=== PATIENT | female | born 1950 | race Caucasian/White ===

== ENCOUNTER 2017-05-05 08:00 | Outpatient (CLI) | payer OTHER ==
[2017-05-05 14:22] LABS: BASOPHILS % (AUTO) 0.6 %; EOSINOPHILS # (AUTO) 0.2 10^3/uL (0.0-0.7); EOSINOPHILS % (AUTO) 2.8 %; HCT - HEMATOCRIT 45.3 % (37.0-47.0); LYMPHOCYTES # (AUTO) 1.7 10^3/uL (1.5-3.5); LYMPHOCYTES % (AUTO) 29.3 %; MEAN CORPUSCULAR HEMOGLOBIN 29.3 pg (27.0-31.0); MEAN CORPUSCULAR VOLUME 88.9 fL (81.0-99.0); MEAN PLATELET VOLUME 8.1 fL (7.9-10.8); MONOCYTES # (AUTO) 0.9 10^3/uL (0.0-1.0); NEUTROPHILS % (AUTO) 51.3 %; NUCLEATED RED BLOOD CELLS AUTO 0.1 /100WBC; RED BLOOD COUNT 5.09 10^6/uL (4.20-5.40); RED CELL DISTRIBUTION WIDTH 13.9 % (12.0-15.0); UNCORRECTED WHITE BLOOD COUNT 5.9 x10^3/uL; WHITE BLOOD COUNT 5.9 x10^3/uL (4.8-10.8)
[2017-05-05 14:41] LABS: ALBUMIN/GLOBULIN RATIO 1.1 (1.0-2.2); BILIRUBIN,TOTAL 0.7 mg/dL (0.2-1.0); BUN - BLOOD UREA NITROGEN 16 mg/dL (6-20); CALCIUM 9.4 mg/dL (8.5-10.3); CARBON DIOXIDE - CO2 26 mmol/L (21-32); CHLORIDE 105 mmol/L (101-111); CHOL/HDL RATIO 2.9 (<4.4); CHOLESTEROL 163 mg/dL; CREATININE 0.9 mg/dL (0.4-1.0); GFR - MDRD 63 (>89); GLUCOSE 124 mg/dL (70-100); HDL CHOLESTEROL 57 mg/dL; LDL/HDL RATIO 1.4 (<4.4); POTASSIUM 3.5 mmol/L (3.5-5.0); SODIUM 139 mmol/L (135-145); TOTAL PROTEIN 7.7 g/dL (6.7-8.2); TRIGLYCERIDES 134 mg/dL; VLDL CHOLESTEROL 27 mg/dL
[2017-05-05 15:45] LABS: HEMOGLOBIN A1C 0.8 g/dL
== END 2017-05-05 08:01 | disposition home or self-care (01) ==
LOC: LAB.WCP 08:00
PROVIDERS: ATTEND Physician Assistant Medical
DX: E11.9 Type 2 diabetes mellitus without complications (principal); E78.5 Hyperlipidemia, unspecified; E03.9 Hypothyroidism, unspecified
CPT/HCPCS: 36415; 80053; 80061; 82043; 83036; 84443; 85025

== ENCOUNTER 2018-10-31 09:13 | Outpatient (CLI) | payer OTHER | END 2018-10-31 09:14 | disposition home or self-care (01) | LOC: SC 09:13 | PROVIDERS: ATTEND Internal Medicine Pulmonary Disease | DX: G47.33 Obstructive sleep apnea (adult) (pediatric) (principal); E66.01 Morbid (severe) obesity due to excess calories; Z68.42 Body mass index [BMI] 45.0-49.9, adult | CPT/HCPCS: 99203; 99212 ==

== ENCOUNTER 2018-11-12 20:33 | Outpatient (CLI) | payer OTHER | END 2018-11-12 20:34 | disposition home or self-care (01) | LOC: SC 20:33 | PROVIDERS: ATTEND Internal Medicine Pulmonary Disease | DX: G47.33 Obstructive sleep apnea (adult) (pediatric) (principal) | CPT/HCPCS: 95810 ==

== ENCOUNTER 2018-11-13 13:21 | Outpatient (CLI) | payer OTHER | END 2018-11-13 13:22 | disposition home or self-care (01) | LOC: SC 13:21 | PROVIDERS: ATTEND Internal Medicine Pulmonary Disease | DX: G47.33 Obstructive sleep apnea (adult) (pediatric) (principal) | CPT/HCPCS: 99212; 99213 ==

== ENCOUNTER 2019-06-05 08:00 | Outpatient (CLI) | payer OTHER ==
[2019-06-05 18:40] LABS: BASOPHILS # (AUTO) 0.1 10^3/uL (0.0-0.1); BASOPHILS % (AUTO) 1.2 %; EOSINOPHILS # (AUTO) 0.2 10^3/uL (0.0-0.7); EOSINOPHILS % (AUTO) 2.8 %; HGB - HEMOGLOBIN 14.1 g/dL (12.0-16.0); LYMPHOCYTES # (AUTO) 1.6 10^3/uL (1.5-3.5); LYMPHOCYTES % (AUTO) 26.5 %; MEAN CORPUSCULAR HEMOGLOBIN 29.4 pg (27.0-31.0); MEAN CORPUSCULAR HGB CONC 32.8 g/dL (32.0-36.0); MEAN CORPUSCULAR VOLUME 89.8 fL (81.0-99.0); MEAN PLATELET VOLUME 10.4 fL (7.9-10.8); MONOCYTES # (AUTO) 0.6 10^3/uL (0.0-1.0); MONOCYTES % (AUTO) 9.5 %; NEUTROPHILS # (AUTO) 3.6 10^3/uL (1.5-6.6); NEUTROPHILS % (AUTO) 59.5 %; PLT - PLATELET COUNT 267 10^3/uL (130-450); RED BLOOD COUNT 4.79 10^6/uL (4.20-5.40); RED CELL DISTRIBUTION WIDTH 13.3 % (12.0-15.0); WHITE BLOOD COUNT 6.1 x10^3/uL (4.8-10.8)
[2019-06-05 19:01] LABS: HB2 TOTAL 14.9 g/dL; HEMOGLOBIN A1C 0.85 g/dL; HEMOGLOBIN A1C % 7.4 % (4.6-6.2)
[2019-06-05 19:10] LABS: ALBUMIN/GLOBULIN RATIO 1.1 (1.0-2.2); ALKALINE PHOSPHATASE 64 IU/L (42-121); ALT ALANINE AMINOTRANSFERASE 15 IU/L (10-60); AST ASPARTATE AMINOTRANSFERASE 20 IU/L (10-42); BILIRUBIN,TOTAL 1.1 mg/dL (0.2-1.0); BUN - BLOOD UREA NITROGEN 29 mg/dL (6-20); CALCIUM 10.9 mg/dL (8.5-10.3); CARBON DIOXIDE - CO2 29 mmol/L (21-32); CHLORIDE 99 mmol/L (101-111); CHOL/HDL RATIO 3.7 (<4.4); CHOLESTEROL 216 mg/dL; CREATININE 1.6 mg/dL (0.4-1.0); GFR - MDRD 32 (>89); GLUCOSE 151 mg/dL (70-100); HDL CHOLESTEROL 59 mg/dL; LDL CHOLESTEROL,CALCULATED 110 mg/dL; LDL/HDL RATIO 1.9 (<4.4); SODIUM 138 mmol/L (135-145); TOTAL PROTEIN 7.5 g/dL (6.7-8.2); VLDL CHOLESTEROL 47 mg/dL
== END 2019-06-05 23:59 | disposition home or self-care (01) ==
LOC: LAB.WCP 08:00
PROVIDERS: ATTEND Physician Assistant Medical
DX: I48.91 Unspecified atrial fibrillation (principal); E11.9 Type 2 diabetes mellitus without complications; E78.5 Hyperlipidemia, unspecified; E03.9 Hypothyroidism, unspecified
CPT/HCPCS: 36415; 80053; 80061; 82043; 82570; 83036; 83721; 84443; 85025

== ENCOUNTER 2019-06-07 14:30 | Outpatient (CLI) | payer OTHER ==
[2019-06-07 20:02] LABS: CREATININE,URINE 364.7 mg/dL; MICROALBUM/CREATININE RATIO,UR 1266.2 ug/mg (<30.0); MICROALBUMIN,URINE 461.8 mg/dL (0-300.0)
== END 2019-06-07 23:59 ==
LOC: LAB.WCP 14:30
PROVIDERS: ATTEND Physician Assistant Medical
DX: I48.91 Unspecified atrial fibrillation (principal); E11.9 Type 2 diabetes mellitus without complications; E78.5 Hyperlipidemia, unspecified
CPT/HCPCS: 82043; 82570

== ENCOUNTER 2019-07-16 08:00 | Outpatient (CLI) | payer OTHER ==
[2019-07-16 13:26] LABS: CALCIUM 9.8 mg/dL (8.5-10.3); CREATININE 1.3 mg/dL (0.4-1.0)
== END 2019-07-16 23:59 | disposition home or self-care (01) ==
LOC: LAB.WCP 08:00
PROVIDERS: ATTEND Physician Assistant Medical
DX: E83.52 Hypercalcemia (principal)
CPT/HCPCS: 36415; 80048; 83970

== ENCOUNTER 2019-09-20 08:50 | Outpatient (CLI) | payer OTHER ==
[2019-09-20 12:32] LABS: ALBUMIN 3.9 g/dL (3.2-5.5); ALBUMIN/GLOBULIN RATIO 1.1 (1.0-2.2); ALKALINE PHOSPHATASE 63 IU/L (42-121); ALT ALANINE AMINOTRANSFERASE 22 IU/L (10-60); AST ASPARTATE AMINOTRANSFERASE 24 IU/L (10-42); BILIRUBIN,TOTAL 1.1 mg/dL (0.2-1.0); BUN - BLOOD UREA NITROGEN 28 mg/dL (6-20); CALCIUM 10.3 mg/dL (8.5-10.3); CARBON DIOXIDE - CO2 26 mmol/L (21-32); CHLORIDE 98 mmol/L (101-111); CHOL/HDL RATIO 3.9 (<4.4); CHOLESTEROL 232 mg/dL; CREATININE 1.4 mg/dL (0.4-1.0); GFR - MDRD 38 (>89); GLUCOSE 173 mg/dL (70-100); HDL CHOLESTEROL 60 mg/dL; LDL CHOLESTEROL,CALCULATED 116 mg/dL; LDL/HDL RATIO 1.9 (<4.4); SODIUM 138 mmol/L (135-145); TOTAL PROTEIN 7.3 g/dL (6.7-8.2); VLDL CHOLESTEROL 56 mg/dL
[2019-09-20 12:55] LABS: HB2 TOTAL 13.8 g/dL; HEMOGLOBIN A1C 1.02 g/dL; HEMOGLOBIN A1C % 8.9 % (4.6-6.2)
== END 2019-09-20 23:59 | disposition home or self-care (01) ==
LOC: LAB.WCP 08:50
PROVIDERS: ATTEND Physician Assistant Medical
DX: E11.9 Type 2 diabetes mellitus without complications (principal)
CPT/HCPCS: 36415; 80053; 80061; 83036; 83721

== ENCOUNTER 2019-10-15 18:24 | Emergency (ER) | payer OTHER ==
[2019-10-15 19:07] LABS: BASOPHILS # (AUTO) 0.1 10^3/uL (0.0-0.1); BASOPHILS % (AUTO) 0.7 %; EOSINOPHILS # (AUTO) 0.3 10^3/uL (0.0-0.7); EOSINOPHILS % (AUTO) 2.6 %; HGB - HEMOGLOBIN 14.2 g/dL (12.0-16.0); LYMPHOCYTES # (AUTO) 2.1 10^3/uL (1.5-3.5); LYMPHOCYTES % (AUTO) 20.8 %; MEAN CORPUSCULAR HEMOGLOBIN 30.8 pg (27.0-31.0); MEAN CORPUSCULAR HGB CONC 34.1 g/dL (32.0-36.0); MEAN CORPUSCULAR VOLUME 90.2 fL (81.0-99.0); MEAN PLATELET VOLUME 9.1 fL (7.9-10.8); MONOCYTES # (AUTO) 0.9 10^3/uL (0.0-1.0); MONOCYTES % (AUTO) 9.2 %; NEUTROPHILS # (AUTO) 6.6 10^3/uL (1.5-6.6); NEUTROPHILS % (AUTO) 65.9 %; PLT - PLATELET COUNT 284 10^3/uL (130-450); RED BLOOD COUNT 4.61 10^6/uL (4.20-5.40); RED CELL DISTRIBUTION WIDTH 13.8 % (12.0-15.0)
[2019-10-15 19:20] LABS: ALBUMIN 4.4 g/dL (3.2-5.5); ALBUMIN/GLOBULIN RATIO 1.1 (1.0-2.2); BILIRUBIN,TOTAL 0.8 mg/dL (0.2-1.0); CALCIUM 10.5 mg/dL (8.5-10.3); CREATININE 1.5 mg/dL (0.4-1.0); TOTAL PROTEIN 8.3 g/dL (6.7-8.2)
[2019-10-15 19:36] LABS: BILIRUBIN,URINE NEGATIVE (NEGATIVE); GLUCOSE, URINE (UA) 100 mg/dL (NEGATIVE); KETONES,URINE (UA) NEGATIVE (NEGATIVE); LEUKOCYTE ESTERASE, URINE NEGATIVE (NEGATIVE); NITRITE,URINE NEGATIVE (NEGATIVE); OCCULT BLOOD,URINE MODERATE (NEGATIVE); PROTEIN,URINE 100 mg/dL (NEGATIVE); UROBILINOGEN,URINE 0.2 (NORMAL) E.U./dL (NORMAL)
[2019-10-15 19:42] LABS: CLARITY,URINE CLEAR (CLEAR)
[2019-10-15 19:50] LABS: BACTERIA,URINE None Seen /HPF (None Seen); SQUAMOUS EPITHELIAL CELL,UR NONE SEEN (<= Few)
--- NOTE | 2019-10-15 21:03 | ED Physician Documentation ---
PD HPI FEMALE - Stated complaint Stated Complaint: FEMALE - Chief complaint Chief Complaint: Abd Pain - History obtained from History obtained from: Patient - History of Present Illness Timing - onset: Today Timing - details: Gradual onset Pain level max: 8 Pain level max: 0 Associated symptoms: Other (unable to urinate). No: Fever Similar symptoms before: Has not had sx before Recently seen: Not recently seen - Additional information Additional information: since this afternoon, patient had increasing urge to urinate and suprapubic fullness and pain but unable to urinate. This gradually progressed until severe and thus comes to ED for evaluation Review of Systems Constitutional: denies: Fever, Chills, Sweats Cardiac: reports: Reviewed and negative Respiratory: reports: Reviewed and negative GI: reports: Abdominal Pain (suprapubic pain, pressure). denies: Nausea, Vomiting : reports: Unable to Void. denies: Dysuria, Frequency PD PAST MEDICAL HISTORY - Past Medical History Past Medical History: Yes Cardiovascular: Hypertension, High cholesterol Respiratory: Sleep apnea, CPAP use Endocrine/Autoimmune: Type 2 diabetes Psych: None - Past Surgical History Ortho: Other - Present Medications Home Medications: Ambulatory Orders Medication Instructions Recorded Confirmed Amlodipine Besylate 10 mg PO DAILY 11/08/14 11/12/14 Aspirin [Aspir 81] 81 mg PO DAILY 11/08/14 11/08/14 Dapagliflozin Propanediol [Farxiga] 5 mg PO DAILY 11/08/14 11/12/14 Levothyroxine [Synthroid] 125 mcg PO QDAC 11/08/14 11/12/14 Losartan Potassium 100 mg PO DAILY 11/08/14 11/12/14 Metformin HCl 500 mg PO BID 11/08/14 11/12/14 Simvastatin 20 mg PO DAILY 11/08/14 11/12/14 Triamterene/Hydrochlorothiazid 1 tab PO DAILY 11/08/14 11/12/14 [Maxzide 37.5 mg-25 mg Tablet] - Allergies Allergies/Adverse Reactions: Allergies Allergy/AdvReac Type Severity Reaction Status Date / Time codeine AdvReac Intermediate Lightheaded Verified 10/15/19 18:30 prednisone AdvReac Intermediate Rash Verified 10/15/19 18:30 Fluoroquinalones AdvReac Severe Avoid due Uncoded 10/15/19 18:30 to ruptured achillies tendon - Social History Does the pt smoke?: No Smoking Status: Never smoker - Immunizations Immunizations are current?: Yes - POLST Patient has POLST: No PD ED PE NORMAL - Vitals Vital signs reviewed: Yes - General General: Alert and oriented X 3, No acute distress ((note that my evaluation is subsequent to placement of bell catheter by RN which resulted in near- resolution of discomfort)), Well developed/nourished - Cardiac Cardiac: RRR - Respiratory Respiratory: No respiratory distress, Clear bilaterally - Abdomen Abdomen: Soft, Non tender, Non distended - Back Back: No CVA TTP - Derm Derm: Normal color, Warm and dry, No rash Results - Vitals Vitals: Vital Signs - 24 hr 10/15/19 10/15/19 10/15/19 18:30 20:29 22:34 Temperature 36.5 C Heart Rate 64 68 59 L Respiratory 14 16 14 Rate Blood Pressure 173/100 H 175/84 H 145/85 H O2 Saturation 98 100 97 10/15/19 23:16 Temperature 36.9 C Heart Rate 58 L Respiratory 16 Rate Blood Pressure 155/87 H O2 Saturation 98 Oxygen O2 Source Room air - Labs Labs: Laboratory Tests 10/15/19 10/15/19 10/15/19 18:50 18:50 19:28 WBC 10.0 RBC 4.61 Hgb 14.2 Hct 41.6 MCV 90.2 MCH 30.8 MCHC 34.1 RDW 13.8 Plt Count 284 MPV 9.1 Neut # (Auto) 6.6 Lymph # (Auto) 2.1 [place] # (Auto) 0.9 Eos # (Auto) 0.3 Baso # (Auto) 0.1 Absolute Nucleated RBC 0.00 Nucleated RBC % 0.0 Sodium 139 Potassium 3.4 L Chloride 101 Carbon Dioxide 22 Anion Gap 16.0 H BUN 32 H Creatinine 1.5 H Estimated GFR (MDRD) 35 L Glucose 225 H Calcium 10.5 H Total Bilirubin 0.8 AST 23 ALT 22 Alkaline Phosphatase 68 Total Protein 8.3 H Albumin 4.4 Globulin 3.9 Albumin/Globulin Ratio 1.1 Lipase 43 Urine Color YELLOW Urine Clarity CLEAR Urine pH 7.0 Ur Specific [place] 1.015 Urine Protein 100 H Urine Glucose (UA) 100 H Urine Ketones NEGATIVE Urine Occult Blood MODERATE H Urine Nitrite NEGATIVE Urine Bilirubin NEGATIVE Urine Urobilinogen 0.2 (NORMAL) Ur Leukocyte Esterase NEGATIVE Urine RBC 11-25 H Urine WBC 0-3 Ur Squamous Epith Cells NONE SEEN Urine Bacteria None Seen Ur Microscopic Review INDICATED Urine Culture Comments NOT INDICATED - Rads (name of study) CT A/P Radiology: Prelim report reviewed, See rad report PD MEDICAL DECISION MAKING - ED course Complexity details: reviewed results, re-evaluated patient, considered differential, d/w patient Departure - Departure Disposition: 01 Home, Self Care Clinical Impression: Urinary retention, Ovarian cyst Condition: Good Instructions: ED Cyst Ovarian, ED Retention Urinary Female Follow-Up: Luiza Dougherty PA-C [Primary Care Provider] - Comments: Beside following up with your primary care provider, you might be referred to other specialists such as urology and pipe buffer. You might need more testing regarding the cause of your urinary retention as well as the ovarian cyst seen on berny's CT scan. Discharge Date/Time: 10/15/19 23:16
--- NOTE | 2019-10-15 22:17 | CT Report ---
Reason: abdominal pain, urinary retention Procedure Date: 10/15/2019 Accession Number: [id number] / [id number] Procedure: CT - Abdomen/Pelvis WO CPT Code: Final Report FULL RESULT: EXAM: CT ABDOMEN AND PELVIS (CT KUB) EXAM DATE: 10/15/2019 09:52 PM. CLINICAL HISTORY: Right-sided pain. Urinary retention. COMPARISONS: ABD/PEL 11/20/2009 3:31 AM. TECHNIQUE: Routine axial helical CT imaging was performed through the abdomen and pelvis without IV contrast. Reconstructions: Coronal and sagittal. In accordance with CT protocol optimization, one or more of the following dose reduction techniques were utilized for this exam: automated exposure control, adjustment of mA and/or KV based on patient size, or use of iterative reconstructive technique. FINDINGS: Lung Bases: Unremarkable. Right Kidney/Ureter: No stones, hydronephrosis, or hydroureter. Perinephric fat stranding. Left Kidney/Ureter: Nonobstructing 1 mm lower pole intrarenal stone. No ureteral stones, hydronephrosis, or hydroureter. Perinephric fat stranding. Upper pole 1.7 cm and 2.2 cm cysts. Other Solid Organs: Noncontrast images of the solid organs are grossly unremarkable. Gallbladder/Bile Ducts: Unremarkable. Peritoneal Cavity: No free fluid, free air or jailene adenopathy. Bowel is grossly unremarkable. Pelvic Organs: 6.1 x 6.7 x 6.2 cm right ovarian cyst noted. Otherwise the reproductive organs are unremarkable. Sorenson catheter drains the bladder. Vasculature: Unremarkable. Other: Fat-containing umbilical hernia 4.6 cm across with a neck of 1.4 cm. IMPRESSION: 1. Nonobstructing 1 mm intrarenal stone on the left, otherwise no stones and no obstruction. 2. Right ovarian 6.1 x 6.7 x 6.2 cm cyst. RADIA
[2019-10-15 23:16] VITALS: BP 155/87
== END 2019-10-15 23:16 | disposition home or self-care (01) ==
LOC: ED 18:24
DX: R33.9 Retention of urine, unspecified (principal); N83.201 Unspecified ovarian cyst, right side; N20.0 Calculus of kidney; I10 Essential (primary) hypertension; E11.9 Type 2 diabetes mellitus without complications; Z79.899 Other long term (current) drug therapy; Z79.82 Long term (current) use of aspirin; Z79.84 Long term (current) use of oral hypoglycemic drugs
CPT/HCPCS: 36415; 51702; 74176; 80053; 81001; 81003; 83690; 85025; 87086; 99284

== ENCOUNTER 2019-11-14 07:00 | Outpatient (CLI) | payer OTHER ==
[2019-11-14 12:46] LABS: HB2 TOTAL 13.6 g/dL; HEMOGLOBIN A1C 0.9 g/dL; HEMOGLOBIN A1C % 8.2 % (4.6-6.2)
[2019-11-14 12:47] LABS: ALBUMIN/GLOBULIN RATIO 1.1 (1.0-2.2); ALKALINE PHOSPHATASE 63 IU/L (42-121); ALT ALANINE AMINOTRANSFERASE 16 IU/L (10-60); AST ASPARTATE AMINOTRANSFERASE 19 IU/L (10-42); BILIRUBIN,TOTAL 0.7 mg/dL (0.2-1.0); BUN - BLOOD UREA NITROGEN 24 mg/dL (6-20); CALCIUM 9.7 mg/dL (8.5-10.3); CARBON DIOXIDE - CO2 23 mmol/L (21-32); CHLORIDE 105 mmol/L (101-111); CHOL/HDL RATIO 3.6 (<4.4); CHOLESTEROL 195 mg/dL; CREATININE 1.2 mg/dL (0.4-1.0); GLUCOSE 125 mg/dL (70-100); HDL CHOLESTEROL 54 mg/dL; LDL CHOLESTEROL,CALCULATED 100 mg/dL; LDL/HDL RATIO 1.9 (<4.4); SODIUM 138 mmol/L (135-145); TOTAL PROTEIN 7.5 g/dL (6.7-8.2); VLDL CHOLESTEROL 41 mg/dL
== END 2019-11-14 23:59 | disposition home or self-care (01) ==
LOC: LAB.WCP 07:00
PROVIDERS: ATTEND Physician Assistant Medical
DX: E11.9 Type 2 diabetes mellitus without complications (principal)
CPT/HCPCS: 36415; 80053; 80061; 83036; 83721

== ENCOUNTER 2020-01-18 09:29 | Outpatient (CLI) | payer OTHER ==
[2020-01-18 14:32] LABS: HB2 TOTAL 14.3 g/dL; HEMOGLOBIN A1C 1.16 g/dL; HEMOGLOBIN A1C % 9.6 % (4.6-6.2)
[2020-01-18 14:36] LABS: BUN - BLOOD UREA NITROGEN 32 mg/dL (6-20); CALCIUM 10.4 mg/dL (8.5-10.3); CARBON DIOXIDE - CO2 24 mmol/L (21-32); CHLORIDE 101 mmol/L (101-111); CHOL/HDL RATIO 3.2 (<4.4); CHOLESTEROL 183 mg/dL; CREATININE 1.4 mg/dL (0.4-1.0); GLUCOSE 214 mg/dL (70-100); HDL CHOLESTEROL 58 mg/dL; LDL CHOLESTEROL,CALCULATED 73 mg/dL; LDL/HDL RATIO 1.3 (<4.4); SODIUM 136 mmol/L (135-145); VLDL CHOLESTEROL 52 mg/dL
== END 2020-01-18 23:59 | disposition home or self-care (01) ==
LOC: LAB.WCP 09:29
PROVIDERS: ATTEND Physician Assistant Medical
DX: E11.9 Type 2 diabetes mellitus without complications (principal)
CPT/HCPCS: 36415; 80048; 80061; 83036; 83721

== ENCOUNTER 2020-02-18 10:17 | Outpatient (CLI) | payer OTHER ==
[2020-02-18 18:28] LABS: CREATININE 1.9 mg/dL (0.4-1.0)
== END 2020-02-18 23:59 | disposition home or self-care (01) ==
LOC: LAB.WCP 10:17
PROVIDERS: ATTEND Physician Assistant Medical
DX: N18.9 Chronic kidney disease, unspecified (principal); N83.201 Unspecified ovarian cyst, right side
CPT/HCPCS: 36415; 80048; 86304

== ENCOUNTER 2020-04-03 07:00 | Outpatient (CLI) | payer OTHER ==
[2020-04-03 14:23] LABS: HGB - HEMOGLOBIN 14.2 g/dL (12.0-16.0); MEAN CORPUSCULAR HEMOGLOBIN 30.9 pg (27.0-31.0); MEAN CORPUSCULAR HGB CONC 33.7 g/dL (32.0-36.0); MEAN CORPUSCULAR VOLUME 91.7 fL (81.0-99.0); MEAN PLATELET VOLUME 10.2 fL (7.9-10.8); RED BLOOD COUNT 4.59 10^6/uL (4.20-5.40); RED CELL DISTRIBUTION WIDTH 13.5 % (12.0-15.0); WHITE BLOOD COUNT 5.7 x10^3/uL (4.8-10.8)
[2020-04-03 14:36] LABS: CALCIUM 10.5 mg/dL (8.5-10.3); CREATININE 1.7 mg/dL (0.4-1.0)
[2020-04-03 14:50] LABS: HB2 TOTAL 15.4 g/dL; HEMOGLOBIN A1C 1.15 g/dL
[2020-04-03 15:05] LABS: CREATININE,URINE 150.3 mg/dL
[2020-04-05 21:25] LABS: PROTEIN/CREATININE RATIO,URINE 0.5 (<=0.2)
== END 2020-04-03 23:59 | disposition home or self-care (01) ==
LOC: LAB.WCP 07:00
PROVIDERS: ATTEND Physician Assistant Medical
DX: E11.22 Type 2 diabetes mellitus with diabetic chronic kidney disease (principal); N18.9 Chronic kidney disease, unspecified; N05.9 Unspecified nephritic syndrome with unspecified morphologic changes; D70.9 Neutropenia, unspecified; D63.1 Anemia in chronic kidney disease; R80.9 Proteinuria, unspecified
CPT/HCPCS: 36415; 80048; 82043; 82570; 83036; 84156; 85027

== ENCOUNTER 2020-04-10 10:18 | Outpatient (CLI) | payer OTHER | END 2020-04-10 23:59 | disposition home or self-care (01) | LOC: LAB.WCP 10:18 | PROVIDERS: ATTEND Physician Assistant Medical | DX: R06.09 Other forms of dyspnea (principal) | CPT/HCPCS: 36415; 85379 ==

== ENCOUNTER 2020-04-10 10:34 | Outpatient (CLI) | payer OTHER ==
--- NOTE | 2020-04-11 08:52 | XRAY Report ---
PROCEDURE: Chest 2 View X-Ray INDICATIONS: DYSPNEA ON EXERTION TECHNIQUE: 2 view(s) of the chest. COMPARISON: None. FINDINGS: Surgical changes and devices: Median sternotomy changes. 3-lead left chest wall cardiac pacing device .. Lungs and pleura: No pleural effusions or pneumothorax. Lungs are clear. Mediastinum: Mediastinal contours are normal. Heart size is at the upper limits of normal. Bones and chest wall: No suspicious bony abnormalities. Soft tissues appear unremarkable. IMPRESSION: Borderline cardiomegaly with increased interstitial markings in the perihilar lungs, consistent with an element of cardiogenic pulmonary edema. Asymmetric right hilar fullness could be related to pulmonary vascular congestion, although a hilar m ass could cause a similar appearance. CT chest with IV contrast is recommended. Reviewed by: Matheus Holbrook MD on 04/10/2020 11:55 AM PDT Approved by: Matheus Holbrook MD on 04/10/2020 11:55 AM PDT Station ID: [id number]
== END 2020-04-10 23:59 | disposition home or self-care (01) ==
LOC: DI.WCP 10:34
PROVIDERS: ATTEND Physician Assistant Medical
DX: R06.09 Other forms of dyspnea (principal); I51.7 Cardiomegaly
CPT/HCPCS: 71046

== ENCOUNTER 2020-04-10 16:29 | Outpatient (CLI) | payer OTHER ==
[2020-04-10] MEDS ORDERED: IOVERSOL 320 100 ML VIAL IVP ONE (16:38)
== END 2020-04-10 16:30 | disposition home or self-care (01) ==
LOC: DI 16:29
PROVIDERS: ATTEND Physician Assistant Medical
DX: R06.09 Other forms of dyspnea (principal)
CPT/HCPCS: 36415; 85379

== ENCOUNTER 2020-06-13 08:00 | Outpatient (CLI) | payer OTHER ==
[2020-06-13 19:34] LABS: CALCIUM 9.8 mg/dL (8.5-10.3); CREATININE 1.4 mg/dL (0.4-1.0); PHOSPHORUS 3.6 mg/dL (2.5-4.6)
== END 2020-06-13 23:59 | disposition home or self-care (01) ==
LOC: LAB.WCP 08:00
PROVIDERS: ATTEND Internal Medicine Nephrology
DX: N05.9 Unspecified nephritic syndrome with unspecified morphologic changes (principal); I50.32 Chronic diastolic (congestive) heart failure; E83.30 Disorder of phosphorus metabolism, unspecified; N25.81 Secondary hyperparathyroidism of renal origin; D64.9 Anemia, unspecified
CPT/HCPCS: 36415; 80048; 82607; 83880; 83970; 84100

== ENCOUNTER 2020-07-07 08:00 | Outpatient (CLI) | payer OTHER ==
[2020-07-07 13:17] LABS: ALBUMIN 3.8 g/dL (3.2-5.5); ALKALINE PHOSPHATASE 78 IU/L (42-121); ALT ALANINE AMINOTRANSFERASE 19 IU/L (10-60); AST ASPARTATE AMINOTRANSFERASE 20 IU/L (10-42); BILIRUBIN,TOTAL 0.9 mg/dL (0.2-1.0); BUN - BLOOD UREA NITROGEN 20 mg/dL (6-20); CALCIUM 9.5 mg/dL (8.5-10.3); CARBON DIOXIDE - CO2 26 mmol/L (21-32); CHLORIDE 101 mmol/L (101-111); CHOL/HDL RATIO 2.6 (<4.4); CHOLESTEROL 136 mg/dL; CREATININE 1.2 mg/dL (0.4-1.0); GLUCOSE 172 mg/dL (70-100); HDL CHOLESTEROL 53 mg/dL; LDL CHOLESTEROL,CALCULATED 49 mg/dL; LDL/HDL RATIO 0.9 (<4.4); SODIUM 135 mmol/L (135-145); TOTAL PROTEIN 7.7 g/dL (6.7-8.2); VLDL CHOLESTEROL 34 mg/dL
[2020-07-07 13:36] LABS: HEMOGLOBIN A1c% 8.3 % (4.27-6.07)
== END 2020-07-07 23:59 | disposition home or self-care (01) ==
LOC: LAB.WCP 08:00
PROVIDERS: ATTEND Physician Assistant Medical
DX: E11.9 Type 2 diabetes mellitus without complications (principal)
CPT/HCPCS: 36415; 80053; 80061; 83036; 83721

== ENCOUNTER 2020-08-07 10:53 | Outpatient (CLI) | payer OTHER ==
--- NOTE | 2020-08-07 16:30 | DEXA Report ---
PROCEDURE: Dexa Spine and/or Hip INDICATIONS: POST MENOPAUSAL TECHNIQUE: Dual energy x-ray absorptiometry (DXA) was performed on a [employer] System. Regions measur ed are the AP Spine, femoral neck, and if needed forearm. COMPARISON: None. FINDINGS: Lumbar Spine: Bone Mineral Density 1.317 g/cm/cm,T score 1.1, normal Left Hip: Bone Mineral Density 1.084 g/cm/cm,T score 0.6, normal Left Femoral Neck: Bone Mineral Density 1.055 g/cm/cm, T score 0.1, normal (T score greater or equal to -1.0: NORMAL) (T score from -1.1 to -2.4: OSTEOPENIA) (T score less than or equal to -2.5 to: OSTEOPOROSIS) Impression: Normal bone mineral density. Patients with diagnosis of osteoporosis or osteopenia should have regular bone mineral density assess ment. For those eligible for Medicare, routine testing is allowed once every 2 years. Testing frequ ency can be increased for patients who have rapidly progressing disease or for those who are receivin g medical therapy to restore bone mass. Reviewed by: Yaima Shaw MD, PhD on 08/07/2020 4:29 PM PST Approved by: Yaima Shaw MD, PhD on 08/07/2020 4:29 PM PST Station ID: [id number]
== END 2020-08-07 10:54 | disposition home or self-care (01) ==
LOC: DI 10:53
PROVIDERS: ATTEND Physician Assistant Medical
DX: Z78.0 Asymptomatic menopausal state (principal)

== ENCOUNTER 2020-10-20 08:00 | Outpatient (CLI) | payer OTHER ==
[2020-10-20 12:50] LABS: CALCIUM 10.4 mg/dL (8.5-10.3); CREATININE 1.2 mg/dL (0.4-1.0)
[2020-10-20 13:03] LABS: HEMOGLOBIN A1c% 9.5 % (4.27-6.07)
== END 2020-10-20 23:59 | disposition home or self-care (01) ==
LOC: LAB.WCP 08:00
PROVIDERS: ATTEND Physician Assistant Medical
DX: E11.9 Type 2 diabetes mellitus without complications (principal)
CPT/HCPCS: 36415; 80048; 83036

== ENCOUNTER 2020-12-15 16:29 | Outpatient (CLI) | payer OTHER, MEDICARE ==
[2020-12-15 20:34] LABS: CALCIUM 10.9 mg/dL (8.5-10.3); CREATININE 1.4 mg/dL (0.4-1.0); POTASSIUM 3.9 mmol/L (3.5-5.0)
== END 2020-12-15 16:30 | disposition home or self-care (01) ==
LOC: LAB.N 16:29
PROVIDERS: ATTEND Internal Medicine Nephrology
DX: N05.9 Unspecified nephritic syndrome with unspecified morphologic changes (principal); I50.32 Chronic diastolic (congestive) heart failure
CPT/HCPCS: 36415; 80048; 83880

== ENCOUNTER 2021-03-02 14:00 | Outpatient (CLI) | payer MEDICARE, OTHER | END 2021-03-02 14:01 | disposition home or self-care (01) | LOC: COV 14:00 | PROVIDERS: ATTEND Internal Medicine Pulmonary Disease | DX: Z01.812 Encounter for preprocedural laboratory examination (principal); R59.0 Localized enlarged lymph nodes; Z20.822 Contact with and (suspected) exposure to COVID-19 ==

== ENCOUNTER 2021-03-06 09:58 | Outpatient (CLI) | payer MEDICARE, OTHER ==
[2021-03-06 13:26] LABS: ESTIMATED AVERAGE GLUCOSE 197 mg/dL (70-100); HEMOGLOBIN A1c% 8.5 % (4.27-6.07)
[2021-03-06 13:40] LABS: ALBUMIN 4.1 g/dL (3.2-5.5); ALBUMIN/GLOBULIN RATIO 1.1 (1.0-2.2); ALKALINE PHOSPHATASE 66 IU/L (42-121); ALT ALANINE AMINOTRANSFERASE 19 IU/L (10-60); AST ASPARTATE AMINOTRANSFERASE 23 IU/L (10-42); BILIRUBIN,TOTAL 0.9 mg/dL (0.2-1.0); BUN - BLOOD UREA NITROGEN 30 mg/dL (6-20); CALCIUM 9.6 mg/dL (8.5-10.3); CARBON DIOXIDE - CO2 26 mmol/L (21-32); CHLORIDE 98 mmol/L (101-111); CHOL/HDL RATIO 2.5 (<4.4); CHOLESTEROL 148 mg/dL; CREATININE 1.5 mg/dL (0.4-1.0); GFR - MDRD 35 (>89); GLUCOSE 341 mg/dL (70-100); HDL CHOLESTEROL 60 mg/dL; LDL CHOLESTEROL,CALCULATED 64 mg/dL; LDL/HDL RATIO 1.1 (<4.4); POTASSIUM 3.8 mmol/L (3.5-5.0); SODIUM 137 mmol/L (135-145); TOTAL PROTEIN 7.8 g/dL (6.7-8.2); TRIGLYCERIDES 118 mg/dL; VLDL CHOLESTEROL 24 mg/dL
== END 2021-03-06 09:59 | disposition home or self-care (01) ==
LOC: LAB.N 09:58
PROVIDERS: ATTEND Physician Assistant Medical
DX: E11.9 Type 2 diabetes mellitus without complications (principal)
CPT/HCPCS: 36415; 80053; 80061; 83036; 83721

== ENCOUNTER 2021-06-05 12:28 | Outpatient (CLI) | payer MEDICARE, OTHER ==
[2021-06-05 18:41] LABS: CALCIUM 10.7 mg/dL (8.5-10.3); CREATININE 1.4 mg/dL (0.4-1.0); POTASSIUM 3.8 mmol/L (3.5-5.0)
[2021-06-05 20:28] LABS: ESTIMATED AVERAGE GLUCOSE 217 mg/dL (70-100); HEMOGLOBIN A1c% 9.2 % (4.27-6.07)
== END 2021-06-05 12:29 | disposition home or self-care (01) ==
LOC: LAB.N 12:28
PROVIDERS: ATTEND Physician Assistant Medical
DX: E11.9 Type 2 diabetes mellitus without complications (principal)
CPT/HCPCS: 36415; 80048; 83036

== ENCOUNTER 2021-06-06 18:28 | Emergency (ER) | payer MEDICARE, OTHER ==
[2021-06-06 21:04] VITALS: BP 210/87
--- NOTE | 2021-06-06 21:06 | ED Physician Documentation ---
PD HPI FEMALE - Stated complaint Stated Complaint: FEMALE /PX - Chief complaint Chief Complaint: Abd Pain - History obtained from History obtained from: Patient - History of Present Illness Timing - onset: Today (this morning) Timing - details: Gradual onset Pain level max: 6 Associated symptoms: Other (unable to urinate). No: Fever Similar symptoms before: Other (T+R for same from this ED 10/15/19. patient says she was seen in follow up by [facility] (right pelvic cyst noted on CT in ED, but patient says she was subsequently told this was benign and she also had recent US that showed the cyst was decreasing in size).) - Additional information Additional information: patient c/o unable to urinate since this morning, c/o urge to urinate with suprapubic pain and fullness. Similar episode September 2019. Patient says she saw urology in f/u and was taken off of a medication that was suspected to have caused the retention (can't remember the medication, but it had been prescribed to prevent urinary frequency). However, she is no longer on this, or any similar, medication. She had not had another episode of urinary retention since the previous ED visit in 2019 Review of Systems Constitutional: reports: Reviewed and negative GI: reports: Abdominal Pain (suprapubic pain/fullness). denies: Nausea, Vomiting : reports: Unable to Void Musculoskeletal: denies: Back pain PD PAST MEDICAL HISTORY - Past Medical History Cardiovascular: Hypertension, High cholesterol Respiratory: Sleep apnea, CPAP use Endocrine/Autoimmune: Type 2 diabetes Psych: None - Past Surgical History Ortho: Other - Present Medications Home Medications: Ambulatory Orders Medication Instructions Recorded Confirmed Amlodipine Besylate 10 mg PO DAILY 11/08/14 11/12/14 Aspirin [Aspir 81] 81 mg PO DAILY 11/08/14 11/08/14 Dapagliflozin Propanediol [Farxiga] 5 mg PO DAILY 11/08/14 11/12/14 Levothyroxine [Synthroid] 125 mcg PO QDAC 11/08/14 11/12/14 Losartan Potassium 100 mg PO DAILY 11/08/14 11/12/14 Metformin HCl 500 mg PO BID 11/08/14 11/12/14 Simvastatin 20 mg PO DAILY 11/08/14 11/12/14 Triamterene/Hydrochlorothiazid 1 tab PO DAILY 11/08/14 11/12/14 [Maxzide 37.5 mg-25 mg Tablet] - Allergies Allergies/Adverse Reactions: Allergies Allergy/AdvReac Type Severity Reaction Status Date / Time ciprofloxacin [From Cipro] AdvReac Severe Ruptured Verified 06/06/21 18:29 Achilles levofloxacin AdvReac Severe Ruptured Verified 06/06/21 18:29 Achilles moxifloxacin AdvReac Severe Ruptured Verified 06/06/21 18:29 Achilles codeine AdvReac Intermediate Lightheaded Verified 06/06/21 18:29 prednisone AdvReac Intermediate Rash Verified 06/06/21 18:29 - Social History Does the pt smoke?: No Smoking Status: Never smoker - Immunizations Immunizations are current?: Yes - POLST Patient has POLST: No PD ED PE NORMAL - Vitals Vital signs reviewed: Yes - General General: Alert and oriented X 3, Other (obese female appears to be in obvious painful discomfort) - Cardiac Cardiac: RRR - Respiratory Respiratory: No respiratory distress, Clear bilaterally - Abdomen Abdomen: Soft, Other (suprapubic fullness and TTP) - Back Back: No CVA TTP Results - Vitals Vitals: Oxygen O2 Source Room air - Labs Labs: Laboratory Tests 06/06/21 21:49 Urine Color YELLOW Urine Clarity CLEAR Urine pH 6.5 Ur Specific [place] 1.020 Urine Protein 100 H Urine Glucose (UA) 250 H Urine Ketones NEGATIVE Urine Occult Blood MODERATE H Urine Nitrite NEGATIVE Urine Bilirubin NEGATIVE Urine Urobilinogen 0.2 (NORMAL) Ur Leukocyte Esterase NEGATIVE Urine RBC TNTC H Urine WBC 4-5 Ur Squamous Epith Cells RARE Squamous Urine Bacteria Few Ur Microscopic Review INDICATED Urine Culture Comments NOT INDICATED PD MEDICAL DECISION MAKING - ED course Complexity details: reviewed old records, re-evaluated patient, considered differential, d/w patient ED course: bell catheter placed by ED RN with over 600 cc clear yellow urine output and resolution of symptoms (suprapubic pain, urge to urinate). We discussed option of keeping bell in place vs removal prior to discharge from ED. She prefers to keep it in place, has appointment this coming Tuesday with PMD Departure - Departure Disposition: Home, Self Care Clinical Impression: Urinary retention Condition: Good Instructions: ED Catheter Care Bell, ED Retention Urinary Female Follow-Up: Luiza Dougherty PA-C [Primary Care Provider] - (Follow up this Tuesday as scheduled) Discharge Date/Time: 06/06/21 23:01
[2021-06-06 21:56] LABS: BILIRUBIN,URINE NEGATIVE (NEGATIVE); GLUCOSE, URINE (UA) 250 mg/dL (NEGATIVE); KETONES,URINE (UA) NEGATIVE (NEGATIVE); LEUKOCYTE ESTERASE, URINE NEGATIVE (NEGATIVE); NITRITE,URINE NEGATIVE (NEGATIVE); OCCULT BLOOD,URINE MODERATE (NEGATIVE); PH,URINE 6.5 PH (5.0-7.5); PROTEIN,URINE 100 mg/dL (NEGATIVE); UROBILINOGEN,URINE 0.2 (NORMAL) E.U./dL (NORMAL)
[2021-06-06 21:57] LABS: CLARITY,URINE CLEAR (CLEAR)
[2021-06-06 22:02] LABS: BACTERIA,URINE Few /HPF (None Seen); RBC,URINE TNTC /HPF (0-5); SQUAMOUS EPITHELIAL CELL,UR RARE Squamous (<= Few)
== END 2021-06-06 23:01 | disposition home or self-care (01) ==
LOC: ED 18:28
DX: R33.9 Retention of urine, unspecified (principal); I10 Essential (primary) hypertension; E11.9 Type 2 diabetes mellitus without complications; Z79.84 Long term (current) use of oral hypoglycemic drugs
CPT/HCPCS: 51702; 81001; 81003; 87086; 99282; 99283

== ENCOUNTER 2021-06-08 13:23 | Emergency (ER) | payer MEDICARE, OTHER ==
--- NOTE | 2021-06-08 13:52 | ED Physician Documentation ---
PD HPI FEMALE - Stated complaint Stated Complaint: FEMALE - Chief complaint Chief Complaint: Abd Pain - History obtained from History obtained from: Patient - Additional information Additional information: Seen here 2 days ago for urinary retention and had bell placed. Since 8am today onle a small amount of urine in the bag, but not filling up at all. Assoc with severe suprapubic pressure. RN notes 500ml in the bladder. Review of Systems Constitutional: reports: Reviewed and negative Ears: reports: Reviewed and negative Nose: reports: Reviewed and negative Throat: reports: Reviewed and negative PD PAST MEDICAL HISTORY - Past Medical History Cardiovascular: Hypertension, High cholesterol Respiratory: Sleep apnea, CPAP use Endocrine/Autoimmune: Type 2 diabetes Psych: None - Past Surgical History Past Surgical History: Yes Ortho: Other - Present Medications Home Medications: Ambulatory Orders Medication Instructions Recorded Confirmed Amlodipine Besylate 10 mg PO DAILY 11/08/14 11/12/14 Aspirin [Aspir 81] 81 mg PO DAILY 11/08/14 11/08/14 Dapagliflozin Propanediol [Farxiga] 5 mg PO DAILY 11/08/14 11/12/14 Levothyroxine [Synthroid] 125 mcg PO QDAC 11/08/14 11/12/14 Losartan Potassium 100 mg PO DAILY 11/08/14 11/12/14 Metformin HCl 500 mg PO BID 11/08/14 11/12/14 Simvastatin 20 mg PO DAILY 11/08/14 11/12/14 Triamterene/Hydrochlorothiazid 1 tab PO DAILY 11/08/14 11/12/14 [Maxzide 37.5 mg-25 mg Tablet] - Allergies Allergies/Adverse Reactions: Allergies Allergy/AdvReac Type Severity Reaction Status Date / Time ciprofloxacin [From Cipro] AdvReac Severe Ruptured Verified 06/08/21 13:34 Achilles levofloxacin AdvReac Severe Ruptured Verified 06/08/21 13:34 Achilles moxifloxacin AdvReac Severe Ruptured Verified 06/08/21 13:34 Achilles codeine AdvReac Intermediate Lightheaded Verified 06/08/21 13:34 prednisone AdvReac Intermediate Rash Verified 06/08/21 13:34 - Social History Does the pt smoke?: No Smoking Status: Never smoker - Immunizations Immunizations are current?: Yes - POLST Patient has POLST: No PD ED PE NORMAL - Vitals Vital signs reviewed: Yes - General General: Alert and oriented X 3, No acute distress - Neuro Neuro: Alert and oriented X 3, Normal speech - Psych Psych: Normal mood, Normal affect Results - Vitals Vitals: Vital Signs - 24 hr 06/08/21 13:34 Temperature 36.2 C L Heart Rate 61 Respiratory 22 Rate Blood Pressure 147/119 H O2 Saturation 98 Oxygen O2 Source Room air PD MEDICAL DECISION MAKING - ED course ED course: 70-year-old woman with urinary retention presents 2 days after having a catheter placed with sensation of urinary retention and decreased urine in the bag. The catheter was flushed and it started working again, but she requested the catheter be removed so without draining too much urine the catheter was removed and she was able to urinate but still had a significant postvoid residual necessitating replacement of the catheter. Departure - Departure Disposition: 01 Home, Self Care Clinical Impression: Urinary retention Condition: Good Record reviewed to determine appropriate education?: Yes Instructions: ED Catheter Care Delta Comments: Follow-up with your primary care's physician as scheduled. At this point it seems reasonable to have them refer you to urology for further evaluation and treatment. Return for new or worsening symptoms.
[2021-06-08 15:03] VITALS: BP 176/102
== END 2021-06-08 15:12 | disposition home or self-care (01) ==
LOC: ED 13:23
DX: R33.9 Retention of urine, unspecified (principal); T83.9XXA Unspecified complication of genitourinary prosthetic device, implant and graft, initial encounter; Y84.6 Urinary catheterization as the cause of abnormal reaction of the patient, or of later complication, without mention of misadventure at the time of the procedure; I10 Essential (primary) hypertension; E11.9 Type 2 diabetes mellitus without complications; Z79.84 Long term (current) use of oral hypoglycemic drugs; Z79.82 Long term (current) use of aspirin
CPT/HCPCS: 51702; 99282; 99283

== ENCOUNTER 2021-06-26 14:06 | Outpatient (CLI) | payer MEDICARE, OTHER ==
[2021-06-26 18:02] LABS: BASOPHILS # (AUTO) 0.1 10^3/uL (0.0-0.1); BASOPHILS % (AUTO) 0.5 %; EOSINOPHILS % (AUTO) 0.3 %; HCT - HEMATOCRIT 43.3 % (37.0-47.0); HGB - HEMOGLOBIN 14.2 g/dL (12.0-16.0); LYMPHOCYTES # (AUTO) 0.7 10^3/uL (1.5-3.5); LYMPHOCYTES % (AUTO) 6.4 %; MEAN CORPUSCULAR HEMOGLOBIN 30.1 pg (27.0-31.0); MEAN CORPUSCULAR HGB CONC 32.8 g/dL (32.0-36.0); MEAN CORPUSCULAR VOLUME 91.9 fL (81.0-99.0); MEAN PLATELET VOLUME 11.3 fL (7.9-10.8); MONOCYTES # (AUTO) 0.4 10^3/uL (0.0-1.0); MONOCYTES % (AUTO) 3.3 %; NEUTROPHILS # (AUTO) 10.1 10^3/uL (1.5-6.6); NEUTROPHILS % (AUTO) 88.6 %; PLT - PLATELET COUNT 185 10^3/uL (130-450); RED BLOOD COUNT 4.71 10^6/uL (4.20-5.40); RED CELL DISTRIBUTION WIDTH 14.3 % (12.0-15.0); WHITE BLOOD COUNT 11.4 x10^3/uL (4.8-10.8)
[2021-06-26 18:57] LABS: ALBUMIN 3.6 g/dL (3.2-5.5); BILIRUBIN,DIRECT 0.3 mg/dL (0.1-0.5); BILIRUBIN,TOTAL 0.7 mg/dL (0.2-1.0); CREATININE 1.4 mg/dL (0.4-1.0); POTASSIUM 4.7 mmol/L (3.5-5.0); TOTAL PROTEIN 7.2 g/dL (6.7-8.2)
== END 2021-06-26 14:07 | disposition home or self-care (01) ==
LOC: LAB.N 14:06
PROVIDERS: ATTEND Internal Medicine Pulmonary Disease
DX: D86.9 Sarcoidosis, unspecified (principal)
CPT/HCPCS: 36415; 80048; 80076; 85025

== ENCOUNTER 2021-07-27 15:13 | Outpatient (CLI) | payer MEDICARE, OTHER ==
[2021-07-27 18:09] LABS: BASOPHILS # (AUTO) 0.1 10^3/uL (0.0-0.1); BASOPHILS % (AUTO) 0.4 %; EOSINOPHILS % (AUTO) 0.2 %; HCT - HEMATOCRIT 42.1 % (37.0-47.0); HGB - HEMOGLOBIN 14.1 g/dL (12.0-16.0); LYMPHOCYTES # (AUTO) 0.9 10^3/uL (1.5-3.5); LYMPHOCYTES % (AUTO) 7.6 %; MEAN CORPUSCULAR HEMOGLOBIN 31.6 pg (27.0-31.0); MEAN CORPUSCULAR HGB CONC 33.5 g/dL (32.0-36.0); MEAN CORPUSCULAR VOLUME 94.4 fL (81.0-99.0); MEAN PLATELET VOLUME 11.1 fL (7.9-10.8); MONOCYTES # (AUTO) 0.2 10^3/uL (0.0-1.0); MONOCYTES % (AUTO) 1.9 %; NEUTROPHILS # (AUTO) 10.9 10^3/uL (1.5-6.6); NEUTROPHILS % (AUTO) 89.3 %; PLT - PLATELET COUNT 226 10^3/uL (130-450); RED BLOOD COUNT 4.46 10^6/uL (4.20-5.40); WHITE BLOOD COUNT 12.2 x10^3/uL (4.8-10.8)
== END 2021-07-27 15:14 | disposition home or self-care (01) ==
LOC: LAB.N 15:13
PROVIDERS: ATTEND Internal Medicine Pulmonary Disease
DX: D86.9 Sarcoidosis, unspecified (principal)
CPT/HCPCS: 36415; 85025

== ENCOUNTER 2021-08-21 10:17 | Outpatient (CLI) | payer MEDICARE, OTHER ==
[2021-08-21 15:33] LABS: BASOPHILS # (AUTO) 0.1 10^3/uL (0.0-0.1); BASOPHILS % (AUTO) 0.5 %; EOSINOPHILS # (AUTO) 0.1 10^3/uL (0.0-0.7); EOSINOPHILS % (AUTO) 0.5 %; HGB - HEMOGLOBIN 13.6 g/dL (12.0-16.0); LYMPHOCYTES # (AUTO) 1.8 10^3/uL (1.5-3.5); LYMPHOCYTES % (AUTO) 16.4 %; MEAN CORPUSCULAR HEMOGLOBIN 31.6 pg (27.0-31.0); MEAN CORPUSCULAR HGB CONC 33.2 g/dL (32.0-36.0); MEAN CORPUSCULAR VOLUME 95.3 fL (81.0-99.0); MEAN PLATELET VOLUME 11.2 fL (7.9-10.8); MONOCYTES # (AUTO) 1.1 10^3/uL (0.0-1.0); MONOCYTES % (AUTO) 9.8 %; NEUTROPHILS % (AUTO) 71.6 %; PLT - PLATELET COUNT 221 10^3/uL (130-450); RED CELL DISTRIBUTION WIDTH 17.1 % (12.0-15.0); WHITE BLOOD COUNT 11.1 x10^3/uL (4.8-10.8)
[2021-08-21 15:55] LABS: ALBUMIN 3.8 g/dL (3.2-5.5); BILIRUBIN,DIRECT 0.1 mg/dL (0.1-0.5); TOTAL PROTEIN 6.7 g/dL (6.7-8.2)
== END 2021-08-21 10:18 | disposition home or self-care (01) ==
LOC: LAB.N 10:17
DX: D86.9 Sarcoidosis, unspecified (principal)
CPT/HCPCS: 36415; 80076; 85025

== ENCOUNTER 2021-09-25 14:46 | Outpatient (CLI) | payer MEDICARE, OTHER ==
[2021-09-25 18:34] LABS: BASOPHILS % (AUTO) 0.3 %; EOSINOPHILS % (AUTO) 0.2 %; HCT - HEMATOCRIT 43.6 % (37.0-47.0); HGB - HEMOGLOBIN 14.7 g/dL (12.0-16.0); LYMPHOCYTES # (AUTO) 1.1 10^3/uL (1.5-3.5); LYMPHOCYTES % (AUTO) 8.9 %; MEAN CORPUSCULAR HEMOGLOBIN 32.7 pg (27.0-31.0); MEAN CORPUSCULAR HGB CONC 33.7 g/dL (32.0-36.0); MEAN CORPUSCULAR VOLUME 97.1 fL (81.0-99.0); MEAN PLATELET VOLUME 10.2 fL (7.9-10.8); MONOCYTES # (AUTO) 0.5 10^3/uL (0.0-1.0); MONOCYTES % (AUTO) 4.3 %; NEUTROPHILS # (AUTO) 10.3 10^3/uL (1.5-6.6); NEUTROPHILS % (AUTO) 85.1 %; PLT - PLATELET COUNT 251 10^3/uL (130-450); RED BLOOD COUNT 4.49 10^6/uL (4.20-5.40); RED CELL DISTRIBUTION WIDTH 15.7 % (12.0-15.0); WHITE BLOOD COUNT 12.1 x10^3/uL (4.8-10.8)
[2021-09-25 18:43] LABS: ALBUMIN 4.1 g/dL (3.2-5.5); BILIRUBIN,DIRECT 0.2 mg/dL (0.1-0.5); BILIRUBIN,TOTAL 0.8 mg/dL (0.2-1.0); TOTAL PROTEIN 7.4 g/dL (6.7-8.2)
== END 2021-09-25 14:47 | disposition home or self-care (01) ==
LOC: LAB.N 14:46
PROVIDERS: ATTEND Internal Medicine Pulmonary Disease
DX: D86.9 Sarcoidosis, unspecified (principal)
CPT/HCPCS: 36415; 80076; 85025

== ENCOUNTER 2021-10-30 13:52 | Outpatient (CLI) | payer MEDICARE, OTHER ==
[2021-10-30 18:04] LABS: BASOPHILS # (AUTO) 0.1 10^3/uL (0.0-0.1); BASOPHILS % (AUTO) 0.4 %; EOSINOPHILS % (AUTO) 0.2 %; HCT - HEMATOCRIT 42.3 % (37.0-47.0); HGB - HEMOGLOBIN 14.2 g/dL (12.0-16.0); LYMPHOCYTES # (AUTO) 1.2 10^3/uL (1.5-3.5); LYMPHOCYTES % (AUTO) 9.5 %; MEAN CORPUSCULAR HEMOGLOBIN 32.9 pg (27.0-31.0); MEAN CORPUSCULAR HGB CONC 33.6 g/dL (32.0-36.0); MEAN CORPUSCULAR VOLUME 97.9 fL (81.0-99.0); MEAN PLATELET VOLUME 10.1 fL (7.9-10.8); MONOCYTES # (AUTO) 0.5 10^3/uL (0.0-1.0); MONOCYTES % (AUTO) 4.3 %; NEUTROPHILS # (AUTO) 10.4 10^3/uL (1.5-6.6); NEUTROPHILS % (AUTO) 84.7 %; PLT - PLATELET COUNT 246 10^3/uL (130-450); RED BLOOD COUNT 4.32 10^6/uL (4.20-5.40); RED CELL DISTRIBUTION WIDTH 14.3 % (12.0-15.0); WHITE BLOOD COUNT 12.3 x10^3/uL (4.8-10.8)
[2021-10-30 18:11] LABS: ALBUMIN 3.9 g/dL (3.2-5.5); BILIRUBIN,DIRECT 0.1 mg/dL (0.1-0.5); CALCIUM 9.3 mg/dL (8.5-10.3); CREATININE 1.6 mg/dL (0.4-1.0); POTASSIUM 3.7 mmol/L (3.5-5.0); TOTAL PROTEIN 6.9 g/dL (6.7-8.2)
== END 2021-10-30 13:53 | disposition home or self-care (01) ==
LOC: LAB.N 13:52
DX: D86.9 Sarcoidosis, unspecified (principal)
CPT/HCPCS: 36415; 80048; 80076; 85025

== ENCOUNTER 2021-12-04 08:39 | Outpatient (CLI) | payer MEDICARE, OTHER ==
[2021-12-04 12:10] LABS: CREATININE,URINE 128.7 mg/dL; MICROALBUM/CREATININE RATIO,UR 202.8 ug/mg (<30.0); MICROALBUMIN,URINE 26.1 mg/dL (0-300.0)
[2021-12-04 12:13] LABS: ESTIMATED AVERAGE GLUCOSE 180 mg/dL (70-100); HEMOGLOBIN A1c% 7.9 % (4.27-6.07)
[2021-12-04 12:53] LABS: ALBUMIN 3.7 g/dL (3.2-5.5); ALBUMIN/GLOBULIN RATIO 1.3 (1.0-2.2); ALKALINE PHOSPHATASE 61 IU/L (42-121); ALT ALANINE AMINOTRANSFERASE 37 IU/L (10-60); AST ASPARTATE AMINOTRANSFERASE 27 IU/L (10-42); BILIRUBIN,TOTAL 0.7 mg/dL (0.2-1.0); BUN - BLOOD UREA NITROGEN 25 mg/dL (6-20); CALCIUM 9.1 mg/dL (8.5-10.3); CARBON DIOXIDE - CO2 26 mmol/L (21-32); CHLORIDE 102 mmol/L (101-111); CHOL/HDL RATIO 2.4 (<4.4); CHOLESTEROL 167 mg/dL; CREATININE 1.8 mg/dL (0.4-1.0); GFR - MDRD 28 (>89); GLUCOSE 129 mg/dL (70-100); HDL CHOLESTEROL 69 mg/dL; LDL CHOLESTEROL,CALCULATED 44 mg/dL; LDL/HDL RATIO 0.6 (<4.4); SODIUM 140 mmol/L (135-145); TOTAL PROTEIN 6.6 g/dL (6.7-8.2); TRIGLYCERIDES 271 mg/dL; VLDL CHOLESTEROL 54 mg/dL
== END 2021-12-04 08:40 | disposition home or self-care (01) ==
LOC: LAB.N 08:39
PROVIDERS: ATTEND Physician Assistant Medical
DX: E11.9 Type 2 diabetes mellitus without complications (principal)
CPT/HCPCS: 36415; 80053; 80061; 82043; 82570; 83036; 83721

== ENCOUNTER 2021-12-07 10:44 | Outpatient (CLI) | payer MEDICARE, OTHER ==
[2021-12-07 12:36] VITALS: BP 132/75
--- NOTE | 2021-12-07 12:36 | SLEEP CARE CONSULTATION ---
Information from patient questionnaire entered by Ousmane Strong MA. I have reviewed and concur with the information entered by Ousmane Strong MA. This document represents the service I personally performed and the decisions made by me, Luis Manuel Vergara MD, [facility] [place]. History of Present Illness Service Date and Time: 12/07/2021 1044 Reason for Visit: New patient (LAST SEEN 2018, ), Other (ON CPAP CURRENTLY) Prior sleep studies: Yes Year and Where: [facility] 2018 Additional HPI information: Ms. German returned today for follow up of nasal CPAP therapy after last seen 3 years ago. She was diagnosed to have severe obstructive sleep apnea-hypopnea syndrome. The patient got her original CPAP in [place] (I prescribed her a device here but she left for [place] before she could get it). Recently, she received the replacement DreamStation 1 from [employer]. She wears a [employer] DreamWear nasal cushion mask. She continues to use the device nightly and all through the night. The compliance download (her online data are not available to us) shows usage in 180 nights out of the past 180 nights, averaging 8.7 hours a night. She complained of no particular problem with the device such as soreness on the face, dry nose, epistaxis, nasal congestion or headache. She thinks that the pressure of 10 - 15 cmH2O is occasionally too high during the night. On the CPAP therapy she notices improvement in her sleep quality, and that she wakes up feeling fresher in the morning and more awake/alert during the day. The [place] Sleepiness Scale score 6. Her notices occasional snore. The average residual AHI is 0.7; and air leak, 36 seconds. The 90th percentile pressure is 11 cmH2O. Subjective Initial [place] Sleepiness Scale score: 7 (2021) Past Medical History Past Medical History: reports: Hypertension, Diabetes, Arrythmia (with pacemaker), Hypothyroidism, Other (sarcoidosis) Social History The patient's occupation is a RE. Patient is and lives in [place]. Have you smoked in the past 12 months: No Alcohol use: No Caffeine use: Yes Caffeine amount and frequency: 1 X DAILY Family History Family Hx Sleep Apnea: Mother: Snoring (No sleep-disordered breathing in the family.), Father: Snoring, Sibling: Snoring Allergies and Home Medications Known drug allergies: Yes Drug allergies reviewed: Yes Home medication list reviewed: Yes Allergy and home medication list: Allergies ciprofloxacin [From Cipro] Adverse Reaction (Severe, Verified 06/08/21 13:34) Ruptured Achilles levofloxacin Adverse Reaction (Severe, Verified 06/08/21 13:34) Ruptured Achilles moxifloxacin Adverse Reaction (Severe, Verified 06/08/21 13:34) Ruptured Achilles codeine Adverse Reaction (Intermediate, Verified 06/08/21 13:34) Lightheaded prednisone Adverse Reaction (Intermediate, Verified 06/08/21 13:34) Rash Review of Systems Review of systems same as previous: Yes Cardiovascular: reports: high blood pressure Respiratory: reports: shortness of breath Gastrointestinal: denies: heartburn, difficulty swallowing, nausea, vomitting, diarrhea, abdominal pain, other Urinary: reports: frequency Neurological: denies: headaches, seizure, head trauma, disorientation, speech dysfunction, gait or balance problems, fainting or unconsciousness, other Psychiatric: denies: Attention Deficit Hyperactivity, anxiety, depression, mood disorder, claustrophobia, other Ear/Nose/Throat: reports: wisdom teeth removed Endocrine: reports: thyroid disease Musculoskeletal: denies: joint pain, neck pain, back pain, joint swelling, muscle pain or cramping, mobility problems, other Immunologic: denies: sneezing, rash, itching, allergies to food or environment, other Physical Exam Vital signs obtained and entered by: Tim STRONG CMA [facility] Blood Pressure: 132/75 (RIGHT, PULSE 98, RESP 18, ) Heart Rate: 111 (2 X DROPPED TO 37) O2 Saturation: 97 (PAPER MASK) Height: 5 ft 8 in Weight: 302 lb (WITH CLOTHES) Body Mass Index: 45.9 BMI Classification: Morbidly Obese Neck circumference: 14.5 Impression and Plan IMPRESSION: 1. Obstructive Sleep Apnea-Hypopnea Syndrome, severe, with the patient doing well on nasal CPAP therapy. She has excellent compliance and sign ificant clinical improvement. The current pressure appears effective but occasionally uncomfortable. Overall, she is very satisfied with treatment and plans to continue with it long-term. Because the residual AHI is very low, I will lower the pressure range for comfort. 2. Bradycardia with heart rate of 39. She is actually in a bigeminy rhythm and her real heart rate is double that. She is aware of the frequent premature ventricular contractions. PLAN: 1. Pressure reduced to 8 - 13 cmH2O manually on the device. 2. Try to lose weight 3. Return in one year for follow up or earlier if there is any problem with the treatment. Adjust device pressure to (cmH2O): 8 - 13 Mask provided: No Counseling Topics: Weight loss health impact Follow up with Sleep Care in: 1 year Visit Type: In Office Time Spent with Patient (minutes): 15 Provider Statement: I spent 100% of the Face to Face Visit with the patient with greater than 50% spent counseling the patient and coordination of care.
== END 2021-12-07 10:45 | disposition home or self-care (01) ==
LOC: SC 10:44
PROVIDERS: ATTEND Internal Medicine Pulmonary Disease
DX: G47.33 Obstructive sleep apnea (adult) (pediatric) (principal); E66.01 Morbid (severe) obesity due to excess calories; Z68.42 Body mass index [BMI] 45.0-49.9, adult
CPT/HCPCS: 99202; G0463; 99212

== ENCOUNTER 2022-02-05 15:21 | Outpatient (CLI) | payer MEDICARE, OTHER ==
[2022-02-05 18:20] LABS: BASOPHILS # (AUTO) 0.1 10^3/uL (0.0-0.1); BASOPHILS % (AUTO) 0.4 %; EOSINOPHILS % (AUTO) 0.3 %; HCT - HEMATOCRIT 44.7 % (37.0-47.0); HGB - HEMOGLOBIN 14.6 g/dL (12.0-16.0); LYMPHOCYTES # (AUTO) 1.2 10^3/uL (1.5-3.5); MEAN CORPUSCULAR HEMOGLOBIN 30.5 pg (27.0-31.0); MEAN CORPUSCULAR HGB CONC 32.7 g/dL (32.0-36.0); MEAN CORPUSCULAR VOLUME 93.5 fL (81.0-99.0); MEAN PLATELET VOLUME 10.1 fL (7.9-10.8); MONOCYTES # (AUTO) 0.6 10^3/uL (0.0-1.0); MONOCYTES % (AUTO) 5.4 %; NEUTROPHILS # (AUTO) 9.6 10^3/uL (1.5-6.6); NEUTROPHILS % (AUTO) 83.3 %; PLT - PLATELET COUNT 225 10^3/uL (130-450); RED BLOOD COUNT 4.78 10^6/uL (4.20-5.40); RED CELL DISTRIBUTION WIDTH 13.8 % (12.0-15.0); WHITE BLOOD COUNT 11.5 x10^3/uL (4.8-10.8)
[2022-02-05 18:40] LABS: ALBUMIN 3.9 g/dL (3.2-5.5); BILIRUBIN,DIRECT 0.1 mg/dL (0.1-0.5); BILIRUBIN,TOTAL 0.7 mg/dL (0.2-1.0); CALCIUM 10.8 mg/dL (8.5-10.3); CREATININE 1.7 mg/dL (0.4-1.0); POTASSIUM 4.2 mmol/L (3.5-5.0); TOTAL PROTEIN 7.5 g/dL (6.7-8.2)
== END 2022-02-05 15:22 | disposition home or self-care (01) ==
LOC: LAB.N 15:21
DX: D86.9 Sarcoidosis, unspecified (principal)
CPT/HCPCS: 36415; 80048; 80076; 85025

== ENCOUNTER 2022-02-19 08:45 | Outpatient (CLI) | payer MEDICARE, OTHER ==
[2022-02-19 11:49] LABS: BASOPHILS # (AUTO) 0.1 10^3/uL (0.0-0.1); BASOPHILS % (AUTO) 0.6 %; EOSINOPHILS # (AUTO) 0.1 10^3/uL (0.0-0.7); EOSINOPHILS % (AUTO) 0.9 %; HCT - HEMATOCRIT 43.9 % (37.0-47.0); HGB - HEMOGLOBIN 14.8 g/dL (12.0-16.0); LYMPHOCYTES # (AUTO) 1.8 10^3/uL (1.5-3.5); LYMPHOCYTES % (AUTO) 19.5 %; MEAN CORPUSCULAR HEMOGLOBIN 31.4 pg (27.0-31.0); MEAN CORPUSCULAR HGB CONC 33.7 g/dL (32.0-36.0); MEAN PLATELET VOLUME 10.1 fL (7.9-10.8); MONOCYTES # (AUTO) 1.1 10^3/uL (0.0-1.0); MONOCYTES % (AUTO) 11.9 %; NEUTROPHILS % (AUTO) 66.3 %; PLT - PLATELET COUNT 249 10^3/uL (130-450); RED BLOOD COUNT 4.72 10^6/uL (4.20-5.40); RED CELL DISTRIBUTION WIDTH 14.1 % (12.0-15.0)
[2022-02-19 12:28] LABS: ALBUMIN 4.1 g/dL (3.2-5.5); BILIRUBIN,DIRECT 0.1 mg/dL (0.1-0.5); BILIRUBIN,TOTAL 0.9 mg/dL (0.2-1.0); CALCIUM 9.7 mg/dL (8.5-10.3); CREATININE 1.5 mg/dL (0.4-1.0); POTASSIUM 3.4 mmol/L (3.5-5.0); TOTAL PROTEIN 7.4 g/dL (6.7-8.2)
== END 2022-02-19 08:46 | disposition home or self-care (01) ==
LOC: LAB.N 08:45
PROVIDERS: ATTEND Internal Medicine Pulmonary Disease
DX: D86.9 Sarcoidosis, unspecified (principal); R06.02 Shortness of breath
CPT/HCPCS: 36415; 80048; 80076; 81599; 82955; 83880; 85018; 85025

== ENCOUNTER 2022-03-06 09:28 | Outpatient (CLI) | payer MEDICARE, OTHER ==
[2022-03-06 19:13] LABS: BASOPHILS # (AUTO) 0.1 10^3/uL (0.0-0.1); BASOPHILS % (AUTO) 0.7 %; EOSINOPHILS # (AUTO) 0.1 10^3/uL (0.0-0.7); EOSINOPHILS % (AUTO) 1.3 %; HCT - HEMATOCRIT 46.2 % (37.0-47.0); HGB - HEMOGLOBIN 14.7 g/dL (12.0-16.0); LYMPHOCYTES # (AUTO) 1.7 10^3/uL (1.5-3.5); LYMPHOCYTES % (AUTO) 21.8 %; MEAN CORPUSCULAR HEMOGLOBIN 30.2 pg (27.0-31.0); MEAN CORPUSCULAR HGB CONC 31.8 g/dL (32.0-36.0); MEAN CORPUSCULAR VOLUME 94.9 fL (81.0-99.0); MEAN PLATELET VOLUME 10.7 fL (7.9-10.8); MONOCYTES # (AUTO) 1.1 10^3/uL (0.0-1.0); MONOCYTES % (AUTO) 14.8 %; NEUTROPHILS # (AUTO) 4.7 10^3/uL (1.5-6.6); NEUTROPHILS % (AUTO) 60.9 %; PLT - PLATELET COUNT 226 10^3/uL (130-450); RED BLOOD COUNT 4.87 10^6/uL (4.20-5.40); RED CELL DISTRIBUTION WIDTH 14.3 % (12.0-15.0); WHITE BLOOD COUNT 7.7 x10^3/uL (4.8-10.8)
[2022-03-06 19:35] LABS: ALBUMIN 3.9 g/dL (3.2-5.5); BILIRUBIN,DIRECT 0.2 mg/dL (0.1-0.5); BILIRUBIN,TOTAL 0.9 mg/dL (0.2-1.0); CALCIUM 9.6 mg/dL (8.5-10.3); CREATININE 1.7 mg/dL (0.4-1.0); POTASSIUM 3.2 mmol/L (3.5-5.0); TOTAL PROTEIN 7.2 g/dL (6.7-8.2)
[2022-03-07 08:11] LABS: ESTIMATED AVERAGE GLUCOSE 166 mg/dL (70-100); HEMOGLOBIN A1c% 7.4 % (4.27-6.07)
== END 2022-03-06 09:29 | disposition home or self-care (01) ==
LOC: LAB.N 09:28
PROVIDERS: ATTEND Internal Medicine Pulmonary Disease
DX: D86.9 Sarcoidosis, unspecified (principal); E11.9 Type 2 diabetes mellitus without complications
CPT/HCPCS: 36415; 80048; 80076; 83036; 85025

== ENCOUNTER 2022-05-25 08:34 | Outpatient (CLI) | payer MEDICARE, OTHER ==
[2022-05-25 13:11] LABS: ALBUMIN 3.9 g/dL (3.2-5.5); ALBUMIN/GLOBULIN RATIO 1.3 (1.0-2.2); ALKALINE PHOSPHATASE 53 IU/L (42-121); ALT ALANINE AMINOTRANSFERASE 32 IU/L (10-60); AST ASPARTATE AMINOTRANSFERASE 29 IU/L (10-42); BILIRUBIN,TOTAL 1.3 mg/dL (0.2-1.0); BUN - BLOOD UREA NITROGEN 25 mg/dL (6-20); CALCIUM 9.4 mg/dL (8.5-10.3); CARBON DIOXIDE - CO2 23 mmol/L (21-32); CHLORIDE 103 mmol/L (101-111); CHOL/HDL RATIO 2.4 (<4.4); CHOLESTEROL 194 mg/dL; CREATININE 1.4 mg/dL (0.4-1.0); GFR - MDRD 37 (>89); GLUCOSE 106 mg/dL (70-100); HDL CHOLESTEROL 80 mg/dL; LDL CHOLESTEROL,CALCULATED 70 mg/dL; LDL/HDL RATIO 0.9 (<4.4); POTASSIUM 3.8 mmol/L (3.5-5.0); SODIUM 138 mmol/L (135-145); TRIGLYCERIDES 219 mg/dL; VLDL CHOLESTEROL 44 mg/dL
[2022-05-25 13:42] LABS: ESTIMATED AVERAGE GLUCOSE 157 mg/dL (70-100); HEMOGLOBIN A1c% 7.1 % (4.27-6.07)
== END 2022-05-25 08:35 | disposition home or self-care (01) ==
LOC: LAB.N 08:34
PROVIDERS: ATTEND Internal Medicine Cardiovascular Disease
DX: E11.9 Type 2 diabetes mellitus without complications (principal); D86.9 Sarcoidosis, unspecified; I50.89 Other heart failure
CPT/HCPCS: 36415; 80053; 80061; 83036; 83721; 83880

== ENCOUNTER 2022-05-26 11:47 | Outpatient (CLI) | payer MEDICARE, OTHER ==
[2022-05-26 17:52] LABS: BASOPHILS # (AUTO) 0.1 10^3/uL (0.0-0.1); BASOPHILS % (AUTO) 0.4 %; EOSINOPHILS # (AUTO) 0.1 10^3/uL (0.0-0.7); EOSINOPHILS % (AUTO) 0.5 %; HCT - HEMATOCRIT 48.8 % (37.0-47.0); HGB - HEMOGLOBIN 15.8 g/dL (12.0-16.0); LYMPHOCYTES # (AUTO) 1.2 10^3/uL (1.5-3.5); LYMPHOCYTES % (AUTO) 10.7 %; MEAN CORPUSCULAR HEMOGLOBIN 28.9 pg (27.0-31.0); MEAN CORPUSCULAR HGB CONC 32.4 g/dL (32.0-36.0); MEAN CORPUSCULAR VOLUME 89.2 fL (81.0-99.0); MEAN PLATELET VOLUME 10.7 fL (7.9-10.8); MONOCYTES # (AUTO) 0.8 10^3/uL (0.0-1.0); MONOCYTES % (AUTO) 7.5 %; NEUTROPHILS # (AUTO) 9.1 10^3/uL (1.5-6.6); NEUTROPHILS % (AUTO) 80.5 %; PLT - PLATELET COUNT 228 10^3/uL (130-450); RED BLOOD COUNT 5.47 10^6/uL (4.20-5.40); RED CELL DISTRIBUTION WIDTH 14.5 % (12.0-15.0); WHITE BLOOD COUNT 11.3 x10^3/uL (4.8-10.8)
[2022-05-26 18:15] LABS: ALBUMIN 3.9 g/dL (3.2-5.5); BILIRUBIN,DIRECT 0.1 mg/dL (0.1-0.5); BILIRUBIN,TOTAL 1.1 mg/dL (0.2-1.0); TOTAL PROTEIN 7.1 g/dL (6.7-8.2)
== END 2022-05-26 11:48 | disposition home or self-care (01) ==
LOC: LAB.N 11:47
PROVIDERS: ATTEND Internal Medicine Pulmonary Disease
DX: D86.9 Sarcoidosis, unspecified (principal)
CPT/HCPCS: 36415; 80076; 83880; 85025

== ENCOUNTER 2022-05-27 10:22 | Outpatient (CLI) | payer MEDICARE, OTHER ==
[2022-05-27 12:43] LABS: CALCIUM 9.4 mg/dL (8.5-10.3); CREATININE 1.5 mg/dL (0.4-1.0); POTASSIUM 3.9 mmol/L (3.5-5.0)
== END 2022-05-27 10:23 | disposition home or self-care (01) ==
LOC: LAB.N 10:22
PROVIDERS: ATTEND Internal Medicine Pulmonary Disease
DX: D86.9 Sarcoidosis, unspecified (principal)
CPT/HCPCS: 36415; 80048

== ENCOUNTER 2022-08-19 13:26 | Outpatient (CLI) | payer MEDICARE, OTHER ==
[2022-08-19 18:19] LABS: BILIRUBIN,DIRECT 0.1 mg/dL (0.1-0.5); BILIRUBIN,TOTAL 0.9 mg/dL (0.2-1.0); TOTAL PROTEIN 7.2 g/dL (6.7-8.2)
== END 2022-08-19 13:27 | disposition home or self-care (01) ==
LOC: LAB.N 13:26
DX: D84.821 Immunodeficiency due to drugs (principal); Z79.899 Other long term (current) drug therapy
CPT/HCPCS: 36415; 80076

== ENCOUNTER 2022-12-27 14:10 | Outpatient (CLI) | payer MEDICARE, OTHER ==
[2022-12-27 18:12] LABS: CALCIUM 9.8 mg/dL (8.5-10.3); CREATININE 2.1 mg/dL (0.4-1.0); POTASSIUM 3.6 mmol/L (3.5-5.0)
== END 2022-12-27 14:11 | disposition home or self-care (01) ==
LOC: LAB.N 14:10
PROVIDERS: ATTEND Internal Medicine Cardiovascular Disease
DX: I42.0 Dilated cardiomyopathy (principal); I49.3 Ventricular premature depolarization
CPT/HCPCS: 36415; 80048

== ENCOUNTER 2023-02-25 08:42 | Outpatient (CLI) | payer MEDICARE, OTHER ==
[2023-02-25 12:41] LABS: CALCIUM 9.6 mg/dL (8.5-10.3); CREATININE 1.8 mg/dL (0.4-1.0); POTASSIUM 3.8 mmol/L (3.5-5.0)
== END 2023-02-25 08:43 | disposition home or self-care (01) ==
LOC: LAB.N 08:42
PROVIDERS: ATTEND Internal Medicine Cardiovascular Disease
DX: I42.0 Dilated cardiomyopathy (principal)
CPT/HCPCS: 36415; 80048

== ENCOUNTER 2023-06-03 13:33 | Outpatient (CLI) | payer MEDICARE, OTHER ==
[2023-06-03 18:22] LABS: CREATININE 2.6 mg/dL (0.6-1.3); POTASSIUM 4.2 mmol/L (3.5-4.5)
== END 2023-06-03 13:34 | disposition home or self-care (01) ==
LOC: LAB.N 13:33
PROVIDERS: ATTEND Internal Medicine Cardiovascular Disease
DX: I42.0 Dilated cardiomyopathy (principal)
CPT/HCPCS: 36415; 80048

== ENCOUNTER 2023-08-12 08:00 | Outpatient (CLI) | payer MEDICARE, OTHER ==
[2023-08-12 12:16] LABS: FECAL OCCULT BLOOD (FIT) NEGATIVE (NEGATIVE)
[2023-08-14 19:06] LABS: GIARDIA LAMBLIA AG EIA Negative (Negative)
== END 2023-08-12 23:59 | disposition home or self-care (01) ==
LOC: LAB.R 08:00
PROVIDERS: ATTEND Family Medicine
DX: R19.7 Diarrhea, unspecified (principal)
CPT/HCPCS: 82274; 83993; 87045; 87046; 87177; 87209; 87329; 87427; 87493

== ENCOUNTER 2023-09-01 15:55 | Outpatient (CLI) | payer MEDICARE, OTHER ==
[2023-09-01 16:18] LABS: BASOPHILS # (AUTO) 0.1 10^3/uL (0.0-0.1); BASOPHILS % (AUTO) 0.7 %; EOSINOPHILS % (AUTO) 0.1 %; HGB - HEMOGLOBIN 12.4 g/dL (12.0-16.0); LYMPHOCYTES # (AUTO) 0.7 10^3/uL (1.5-3.5); LYMPHOCYTES % (AUTO) 7.7 %; MEAN CORPUSCULAR HGB CONC 30.2 g/dL (32.0-36.0); MEAN PLATELET VOLUME 9.6 fL (7.9-10.8); MONOCYTES # (AUTO) 0.4 10^3/uL (0.0-1.0); MONOCYTES % (AUTO) 4.8 %; NEUTROPHILS # (AUTO) 7.4 10^3/uL (1.5-6.6); NEUTROPHILS % (AUTO) 86.1 %; PLT - PLATELET COUNT 249 10^3/uL (130-450); RED BLOOD COUNT 4.27 10^6/uL (4.20-5.40); RED CELL DISTRIBUTION WIDTH 14.7 % (12.0-15.0); WHITE BLOOD COUNT 8.6 x10^3/uL (4.8-10.8)
[2023-09-01 16:42] LABS: ALBUMIN 4.1 g/dL (3.2-5.5); CALCIUM 9.4 mg/dL (8.5-10.3); CREATININE 2.6 mg/dL (0.6-1.3); PHOSPHORUS 3.2 mg/dL (2.5-5.0); POTASSIUM 4.1 mmol/L (3.5-4.5)
== END 2023-09-01 15:56 | disposition home or self-care (01) ==
LOC: LAB 15:55
PROVIDERS: ATTEND Internal Medicine Nephrology
DX: N17.0 Acute kidney failure with tubular necrosis (principal)
CPT/HCPCS: 36415; 80069; 81001; 81003; 82570; 83970; 84156; 85025

== ENCOUNTER 2023-09-02 08:00 | Outpatient (CLI) | payer MEDICARE, OTHER ==
[2023-09-02 19:12] LABS: BILIRUBIN,URINE NEGATIVE (NEGATIVE); GLUCOSE, URINE (UA) NEGATIVE (NEGATIVE); KETONES,URINE (UA) NEGATIVE (NEGATIVE); LEUKOCYTE ESTERASE, URINE NEGATIVE (NEGATIVE); NITRITE,URINE NEGATIVE (NEGATIVE); OCCULT BLOOD,URINE NEGATIVE (NEGATIVE); PH,URINE 5.5 PH (5.0-7.5); PROTEIN,URINE NEGATIVE (NEGATIVE); UROBILINOGEN,URINE 0.2 (NORMAL) E.U./dL (NORMAL)
[2023-09-02 19:22] LABS: CLARITY,URINE CLEAR (CLEAR)
[2023-09-02 19:23] LABS: CREATININE,URINE 41.2 mg/dL; PROTEIN/CREATININE RATIO,URINE 0.5 (<=0.2)
== END 2023-09-02 23:59 | disposition home or self-care (01) ==
LOC: LAB.R 08:00
PROVIDERS: ATTEND Internal Medicine Nephrology
DX: N17.0 Acute kidney failure with tubular necrosis (principal)
CPT/HCPCS: 81001; 81003; 82570; 84156

== ENCOUNTER 2023-09-19 08:06 | Outpatient (CLI) | payer MEDICARE, OTHER ==
[2023-09-19 12:40] LABS: CALCIUM 9.9 mg/dL (8.5-10.3); CREATININE 2.5 mg/dL (0.6-1.3); POTASSIUM 3.5 mmol/L (3.5-4.5)
== END 2023-09-19 08:07 | disposition home or self-care (01) ==
LOC: LAB.N 08:06
PROVIDERS: ATTEND Internal Medicine Cardiovascular Disease
DX: I50.32 Chronic diastolic (congestive) heart failure (principal)
CPT/HCPCS: 36415; 80048

== ENCOUNTER 2023-10-06 15:00 | Outpatient (CLI) | payer MEDICARE, OTHER ==
[2023-10-06 17:49] LABS: CALCIUM 10.6 mg/dL (8.5-10.3); POTASSIUM 3.9 mmol/L (3.5-4.5)
[2023-10-06 18:22] LABS: CREATININE,URINE 57.7 mg/dL; MICROALBUM/CREATININE RATIO,UR 69.3 ug/mg (<30.0)
[2023-10-06 20:34] LABS: ESTIMATED AVERAGE GLUCOSE 134 mg/dL (70-100); HEMOGLOBIN A1c% 6.3 % (4.27-6.07)
== END 2023-10-06 15:01 | disposition home or self-care (01) ==
LOC: LAB.N 15:00
PROVIDERS: ATTEND Internal Medicine Cardiovascular Disease
DX: I50.32 Chronic diastolic (congestive) heart failure (principal); E11.69 Type 2 diabetes mellitus with other specified complication; Z79.4 Long term (current) use of insulin
CPT/HCPCS: 36415; 80048; 82043; 82570; 83036

== ENCOUNTER 2023-12-12 10:07 | Outpatient (CLI) | payer MEDICARE, OTHER | END 2023-12-12 23:59 | disposition short-term general hospital (02) | LOC: EMS 10:07 | DX: R07.89 Other chest pain (principal); R53.81 Other malaise; R11.2 Nausea with vomiting, unspecified; R19.7 Diarrhea, unspecified; R25.1 Tremor, unspecified; R68.83 Chills (without fever); I48.91 Unspecified atrial fibrillation; Z95.0 Presence of cardiac pacemaker | CPT/HCPCS: A0425; A0429 ==

== ENCOUNTER 2024-03-07 07:55 | Outpatient (CLI) | payer MEDICARE, OTHER ==
[2024-03-07 12:49] LABS: BASOPHILS % (AUTO) 0.5 %; EOSINOPHILS # (AUTO) 0.1 10^3/uL (0.0-0.7); EOSINOPHILS % (AUTO) 0.9 %; HCT - HEMATOCRIT 36.8 % (37.0-47.0); HGB - HEMOGLOBIN 11.3 g/dL (12.0-16.0); LYMPHOCYTES # (AUTO) 1.5 10^3/uL (1.5-3.5); LYMPHOCYTES % (AUTO) 20.5 %; MEAN CORPUSCULAR HEMOGLOBIN 29.3 pg (27.0-31.0); MEAN CORPUSCULAR HGB CONC 30.7 g/dL (32.0-36.0); MEAN CORPUSCULAR VOLUME 95.3 fL (81.0-99.0); MONOCYTES # (AUTO) 1.1 10^3/uL (0.0-1.0); MONOCYTES % (AUTO) 13.9 %; NEUTROPHILS # (AUTO) 4.8 10^3/uL (1.5-6.6); NEUTROPHILS % (AUTO) 63.8 %; PLT - PLATELET COUNT 272 10^3/uL (130-450); RED BLOOD COUNT 3.86 10^6/uL (4.20-5.40); RED CELL DISTRIBUTION WIDTH 13.8 % (12.0-15.0); WHITE BLOOD COUNT 7.5 x10^3/uL (4.8-10.8)
[2024-03-07 13:07] LABS: ALBUMIN 4.3 g/dL (3.2-5.5); ALBUMIN/GLOBULIN RATIO 1.5 (1.0-2.2); BILIRUBIN,TOTAL 0.5 mg/dL (0.2-1.0); CREATININE 3.7 mg/dL (0.6-1.3); POTASSIUM 3.7 mmol/L (3.5-4.5); TOTAL PROTEIN 7.2 g/dL (6.4-8.9)
== END 2024-03-07 07:56 | disposition home or self-care (01) ==
LOC: LAB.N 07:55
PROVIDERS: ATTEND Internal Medicine
DX: I12.9 Hypertensive chronic kidney disease with stage 1 through stage 4 chronic kidney disease, or unspecified chronic kidney disease (principal); E03.9 Hypothyroidism, unspecified; N18.9 Chronic kidney disease, unspecified; E83.52 Hypercalcemia
CPT/HCPCS: 36415; 80053; 81599; 82310; 82330; 82784; 84155; 84165; 85025; 86334

== ENCOUNTER 2024-04-09 07:42 | Outpatient (CLI) | payer MEDICARE, OTHER ==
[2024-04-09 13:18] LABS: ALBUMIN 3.6 g/dL (3.2-5.5); ALBUMIN/GLOBULIN RATIO 1.6 (1.0-2.2); BILIRUBIN,TOTAL 0.4 mg/dL (0.2-1.0); CALCIUM 8.1 mg/dL (8.5-10.3); CREATININE 2.7 mg/dL (0.6-1.3); POTASSIUM 4.3 mmol/L (3.5-4.5); TOTAL PROTEIN 5.8 g/dL (6.4-8.9)
== END 2024-04-09 07:43 | disposition home or self-care (01) ==
LOC: LAB.N 07:42
DX: N17.9 Acute kidney failure, unspecified (principal)
CPT/HCPCS: 36415; 80053

== ENCOUNTER 2024-04-17 09:13 | Outpatient (CLI) | payer MEDICARE, OTHER ==
[2024-04-17 18:36] LABS: CALCIUM 10.4 mg/dL (8.5-10.3); CREATININE 3.6 mg/dL (0.6-1.3); POTASSIUM 4.3 mmol/L (3.5-4.5)
== END 2024-04-17 09:14 | disposition home or self-care (01) ==
LOC: LAB.N 09:13
PROVIDERS: ATTEND Internal Medicine Cardiovascular Disease
DX: I50.32 Chronic diastolic (congestive) heart failure (principal)
CPT/HCPCS: 36415; 80048